=== PATIENT | male | born 1940 | race Caucasian/White ===

== ENCOUNTER 2018-02-12 03:11 | Emergency (ER) | payer OTHER ==
[~2018-02-12] VITALS: Ht 167.6 cm; Wt 85.0 kg
[~2018-02-12 03:11] MED LIST: ACET-2247 PO; ASPI-556 PO; AUD NEB; BISA10S PR; FOLI1 PO; GUAI5SYR PO; HYDR25TA84 PO; IPRNEB IH; LEVO750P7 IV; LOSA50TA25 PO; METO50 PO; MOM30 PO; PANT40TA25 PO; PRED20 PO; TAMS0.4C32 PO; ZOLP5 PO
[2018-02-12] MEDS ORDERED: PRED5 PO (03:30)
[2018-02-12] MEDS ORDERED: ALEN70TA48 PO (03:30)
[2018-02-12] MEDS ORDERED: HYDR-309 PO (03:30)
[2018-02-12] MEDS ORDERED: OMEP20 PO (03:30)
[2018-02-12] MEDS ORDERED: METH2.5T6 PO (03:30)
[2018-02-12] MEDS ORDERED: DICL100T5 PO (03:30)
[2018-02-12 03:31] LABS: BASOPHILS % (AUTO) 0.3 % (0.0-2.0); EOSINOPHILS % (AUTO) 1.5 % (1.0-6.0); HEMATOCRIT 34.4 % (41-53); HEMOGLOBIN 11.4 g/dL (13.5-17.5); LYMPHOCYTES # (AUTO) 1.5 K/uL (1.0-4.8); LYMPHOCYTES % (AUTO) 12.3 % (22.0-44.0); MEAN CORPUSCULAR HEMOGLOBIN 28.2 pg (26.0-34.0); MEAN CORPUSCULAR HGB CONC 33.1 G/dL (31.0-37.0); MEAN CORPUSCULAR VOLUME 85 fL (80-100); MONOCYTES # (AUTO) 0.8 K/uL (0.1-1.0); NEUTROPHILS # (AUTO) 9.5 K/uL (1.8-7.7); NEUTROPHILS % (AUTO) 78.9 % (40.0-70.0); PLATELET COUNT (AUTO) 155 K/uL (150-450); RED BLOOD CELL COUNT(AUTO) 4.02 MIL/uL (4.50-5.90); RED CELL DISTRIBUTION WIDTH 16.9 % (11.5-14.5)
[2018-02-12 03:39] LABS: ANION GAP 7 mmol/L (8-16); CALCIUM, TOTAL 7.9 mg/dL (8.8-10.5); CARBON DIOXIDE 27 mmol/L (22-29); CHLORIDE 106 mmol/L (98-107); GLOMERULAR FILTR. RATE CALC > 60 mL/min (>60); GLUCOSE,RANDOM 142 mg/dL (70-110); POTASSIUM 3.4 mmol/L (3.5-5.1); SODIUM SERUM 140 mmol/L (136-145); UREA NITROGEN, BLOOD 11 mg/dL (7-18)
[2018-02-12 03:44] LABS: ALANINE AMINOTRANSFERASE 19 U/L (12-78); ALBUMIN 2.5 g/dL (3.4-5.0); ALKALINE PHOSPHATASE 41 U/L (46-116); ASPARTATE AMINOTRANSFERASE 11 U/L (15-37); BILIRUBIN,TOTAL 0.6 mg/dL (0.1-1.0); LIPASE 178 U/L (73-393)
[2018-02-12] MEDS ORDERED: IOVERSOL 350 MG/ML 100 ML VIAL ONE (04:34)
[2018-02-12] MEDS ORDERED: SODIUM CHLORIDE 0.9% 100 ML ONE (04:34)
[2018-02-12] MEDS ORDERED: IOVERSOL 350 MG/ML 50 ML VIAL ONE (04:35)
[2018-02-12 04:57] LABS: APPEARANCE,URINE CLEAR (CLEAR); BILIRUBIN,URINE NEGATIVE (NEGATIVE); GLUCOSE, URINE (UA) NEGATIVE (NEGATIVE); KETONES,URINE TRACE mg/dL (NEGATIVE); LEUKOCYTE ESTERASE ,URINE NEGATIVE (NEGATIVE); NITRATE,URINE NEGATIVE (NEGATIVE); OCCULT BLOOD,URINE NEGATIVE (NEGATIVE); PROTEIN,URINE NEGATIVE (NEGATIVE); UROBILINOGEN,URINE 0.2 mg/dL (<=1.0)
[2018-02-12 05:25] VITALS: BP 142/74
== END 2018-02-12 06:14 | disposition home or self-care (01) ==
LOC: EMS 03:12
DX: K52.9 Noninfective gastroenteritis and colitis, unspecified (principal); E66.9 Obesity, unspecified; Z68.30 Body mass index [BMI] 30.0-30.9, adult; Z88.0 Allergy status to penicillin; Z79.82 Long term (current) use of aspirin; Z79.899 Other long term (current) drug therapy
CPT/HCPCS: 36415; 71045; 74177; 80053; 81003; 83690; 84484; 85025; 93005; 99285; J7050; Q9967 ×2